=== PATIENT | male | born 1995 | race Caucasian/White ===

== ENCOUNTER 2016-10-15 19:16 | Emergency (ER) | payer BC ==
[~2016-10-15] VITALS: Ht 185.4 cm; Wt 90.7 kg
[~2016-10-15 19:16] MED LIST: ACHD5005 PO; ALB0.5V INH; CEFD300C3 PO; CEPH500C PO; POLY119P PO
--- NOTE | 2016-10-15 20:16 | Diagnostic Imaging Report ---
INDICATION: Fell off a roof landing on left arm, left arm pain. FINDINGS: Two views of the left forearm demonstrate normal ossification. No fracture or dislocation is present. IMPRESSION: Negative left forearm. Dictated by: Dictated on workstation # [id number]
[2016-10-15] MEDS ORDERED: NAPR500T3 PO (20:17)
[2016-10-15] MEDS ORDERED: TRAM-42 PO (20:17)
--- NOTE | 2016-10-15 20:17 | Diagnostic Imaging Report ---
INDICATION: Fell off a roof landing on left arm, left elbow pain. FINDINGS: 3 views of the left elbow demonstrate normal ossification. No fracture or dislocation is present. IMPRESSION: Normal left elbow. Dictated by: Dictated on workstation # [id number]
--- NOTE | 2016-10-15 20:18 | ED Fall/Injury ---
General Chief Complaint: Trauma-Non Activation Stated Complaint: L ARM INJ/FELL OFF OF ROOF Nursing Triage Note: Ambulatory to ED 4 with reports of fall from ladder at approximately 12 feet high. Patient denies loss of consciousness, denies hitting head, reports only left shoulder and arm pain. Source: patient History of Present Illness Time seen by provider: 19:20 Initial Comments PT STATES HE WAS WORKING ON A ROOF (SELF -EMPLOYED, "HELPING A SARMAD OUT" ) WAS ON THE ROOF AND GETTING ONTO THE LADDER AND WAS HOLDING ON TO/HANGING FROM THE GUTTER WHEN THE LADDER SLIPPED AND HE FELL, LANDING ON LEFT FOREARM ONTO A WOODEN DECK--STATES ROOF WAS APPROXIMATELY 12 FEET OCCURRED AT 1730 DID NOT HIT HIS HEAD AND NO LOSS OF CONSCIOUSNESS NO NECK OR BACK PAIN NO LEG OR HIP PAIN NO PARESTHESIAS OR MOTOR DEFICITS C/O PAIN IN MID LEFT FOREARM HAS BEEN HOME, SHOWERED AND ATE PRIOR TO ARRIVAL HAS NOT TAKEN ANYTHING FOR PAIN NO PRIOR INJURY TO THIS ARM PT IS RIGHT HANDED. Location Injury Occurred: work-self employed PCP: DR. TORRES Allergies and Home Medications Allergies Coded Allergies: amoxicillin (Unverified Allergy, Unknown, 10/15/16) sulfamethoxazole (Unverified Allergy, Unknown, 10/15/16) trimethoprim (Unverified Allergy, Unknown, 10/15/16) Home Medications Naproxen 500 Mg Tablet, 500 MG PO BID, #20 Prescribed by: JOSHUA BENNETT on 10/15/162016 Tramadol HCl 50 Mg Tablet, 50 MG PO Q4H, #12 Prescribed by: JOSHUA BENNETT on 10/15/162016 Constitutional: no symptoms reported Eyes: No Symptoms Reported Ears, Nose, Mouth, Throat: no symptoms reported Respiratory: no symptoms reported Cardiovascular: no symptoms reported Gastrointestinal: no symptoms reported Genitourinary: no symptoms reported Musculoskeletal: see HPI Skin: no symptoms reported Psychiatric/Neurological: No Symptoms Reported Past Lwwstkx-Iqiqpy-Jxmoab Hx Patient Social History Alcohol Use: Occasionally Uses Recreational Drug Use: No Smoking Status: Never a Smoker 2nd Hand Smoke Exposure: No Recent Foreign Travel: No Contact w/Someone Who Travel: No Recent Infectious Disease Expo: No Recent Hopitalizations: No Immunizations Up To Date Tetanus Booster (TDap): Less than 5yrs PED Vaccines UTD: Yes Seasonal Allergies Seasonal Allergies: Yes Surgeries HX Surgeries: Yes (RIGHT ANKLE FX/DISLOCATION--S/P REPAIR; EAR SURGERIES X 5- BMT'S) Surgeries: Ear Surgery, Orthopedic Respiratory Hx Respiratory Disorders: No Cardiovascular Hx Cardiac Disorders: No Neurological Hx Neurological Disorders: No Reproductive System Hx Reproductive Disorders: No Genitourinary Hx Genitourinary Disorders: Yes (BLADDER INFECTION) Gastrointestinal Hx Gastrointestinal Disorders: No Musculoskeletal Hx Musculoskeletal Disorders: Yes (RIGHT ANKLE FX/DISLOCATION) Musculoskeletal Disorders: Fractures Endocrine Hx Endocrine Disorders: No HEENT HX ENT Disorders: Yes HEENT Disorders: Chronic Ear Infection Cancer Hx Cancer: No Psychosocial Hx Psychiatric Problems: No Integumentary HX Skin/Integumentary Disorder: No Blood Transfusions Hx Blood Disorders: No Physical Exam Vital Signs Vital Sign - Last 12Hours 10/15/16 19:21 Temp 98.5 Pulse 92 Resp 16 B/P (MAP) 122/76 Pulse Ox 98 O2 Delivery Room Air Capillary Refill : Less Than 3 Seconds General Appearance: WD/WN, no apparent distress, other (AMBULATES INTO ER WITHOUT ANY DIFFICULTY) HEENT: PERRL/EOMI, normal ENT inspection, TMs normal, pharynx normal Neck: non-tender, full range of motion, supple, normal inspection Cardiovascular: normal peripheral pulses, regular rate, rhythm, no edema, no JVD, no murmur Respiratory: chest non-tender, normal breath sounds, no respiratory distress, no accessory muscle use Peripheral Pulses: 2+ Dorsalis Pedis (R), 2+ Left Dors-Pedis (L), 2+ Radial Pulses (R), 2+ Radial Pulses (L) Gastrointestinal: normal bowel sounds, non tender, soft Back: normal inspection, no CVA tenderness, no vertebral tenderness Extremities: normal range of motion, no pedal edema, no calf tenderness, normal capillary refill, other (LEFT ARM WITH MILD TENDERNESS TO PROXIMAL AND MID FOREARM AREA. FULL ROM. MOTOR/SENSORY/VASCULAR INTACT. NO EXTERNAL EVIDENCE OF TRAUMA. ) Neurologic/Psychiatric: nascar racer II-XII nml as tested, no motor/sensory deficits, alert, normal mood/affect, oriented x 3 Skin: normal color, warm/dry, other (NO EXTERNAL EVIDENCE OF TRAUMA ANYWHERE ON BODY) Rory Coma Score Best Eye Response: (4) Open Spontaneously Best Verbal Response: (5) Oriented Best Motor Response: (6) Obeys Commands Rory Total: 15 Splinting and Joint Reduction : Arm Sling: Large Progress/Results/Core Measures Results/Orders My Orders Orders - JOSHUA BENNETT DO Forearm, Left, 2 Views (10/15/16 19:25) Elbow, Left, 3 Views (10/15/16 19:25) Sling (10/15/16 20:11) Vital Signs/I&O Vital Sign - Last 12Hours 10/15/16 10/15/16 19:21 20:24 Temp 98.5 98.5 Pulse 92 92 Resp 16 16 B/P (MAP) 122/76 Pulse Ox 98 98 O2 Delivery Room Air Blood Pressure Mean: 91 Diagnostic Imaging Comments XRAYS LEFT ELBOW AND FOREARM--NO ACUTE PROCESS, PER RADIOLOGIST REPORT @ 2022 Reviewed: Reviewed by Me Departure Impression Impression: Primary Impression: LEFT ARM AND ELBOW CONTUSION Additional Impression: S/P FALL FROM ROOF Disposition: 01 HOME, SELF-CARE Condition: Stable Departure-Patient Inst. Referrals: BIPIN TORRES MD (PCP/Family) Primary Care Physician Patient Instructions: Contusion (DC), Elbow Sprain (DC), How to Use a Shoulder Sling Add. Discharge Instructions: ICE TO AREA AT 20 MINUTE INTERVALS WEAR SLING NEEDED FOR COMFORT LIMITED USE OF LEFT ARM X 1 WEEK FOLLOW UP WITH YOUR DR IN 1 WEEK IF NO BETTER All discharge instructions reviewed with patient and/or family. Voiced understanding. Scripts Tramadol HCl (Ultram) 50 Mg Tablet 50 MG PO Q4H, #12 TAB Prov: JOSHUA BENNETT DO 10/15/16 Naproxen (Naproxen) 500 Mg Tablet 500 MG PO BID, #20 TAB Prov: JOSHUA BENNETT DO 10/15/16 JOSHUA BENNETT DO October 15, 2016 20:18
[2016-10-15 20:24] VITALS: BP 122/76
== END 2016-10-15 20:24 | disposition home or self-care (01) ==
LOC: EDUNIT# 19:16 → ER 19:17
DX: S50.02XA Contusion of left elbow, initial encounter (principal); S40.022A Contusion of left upper arm, initial encounter; W13.2XXA Fall from, out of or through roof, initial encounter; Y92.018 Other place in single-family (private) house as the place of occurrence of the external cause; Y93.H9 Activity, other involving exterior property and land maintenance, building and construction; Y99.0 Civilian activity done for income or pay
CPT/HCPCS: 73080; 73090; 99282

== ENCOUNTER → 2019-11-18 | Outpatient (CLI) | payer BC ==
[~2019-11-18] MED LIST changes: +NAPR-915 PO; +TRAM-42 PO
== END ==
LOC: LAB 20:27
PROVIDERS: ATTEND Nurse Practitioner Family
DX: J02.9 Acute pharyngitis, unspecified (principal); R53.81 Other malaise; Z20.828 Contact with and (suspected) exposure to other viral communicable diseases
CPT/HCPCS: 87635